=== PATIENT | female | born 1985 | race Caucasian/White ===

== ENCOUNTER 2016-03-03 11:37 | Inpatient (IN) | payer OTHER ==
[2016-03-03] MEDS ORDERED: TERBUTALINE SULFATE 1 MG/ML VIAL IV PRN (12:07)
[2016-03-03] MEDS ORDERED: EPSOM SALT 454 GM TP PRN (12:07)
[2016-03-03] MEDS ORDERED: OXYTOCIN/RINGERS LACTATE 1,000 ML IV PRN (12:07)
[2016-03-03] MEDS ORDERED: MINERAL OIL 60 ML OIL TP PRN (12:07)
[2016-03-03] MEDS ORDERED: LR 1,000 ML IV PRN (12:07)
[2016-03-03] MEDS ORDERED: LIDOCAINE 1% 30 ML SDV SC PRN (12:07)
--- NOTE | 2016-03-03 12:07 | GHP ---
[f rep st] HISTORY AND PHYSICAL DATE OF ADMISSION: 03/03/2016 ADMISSION DIAGNOSES: 1. Intrauterine at 37 weeks and 2 days. 2. Intrauterine growth restriction, estimated weight at the 3rd percentile. HISTORY OF PRESENT ILLNESS: Patient is a 31-year-old, 1, para 0, at 37 weeks and 2 days with an estimated due date of 03/22/2016 and this is by an 8- week ultrasound done in our office. Patient presents today for a routine visit and did have an ultrasound done for growth. This ultrasound showed baby girl in 3rd percentile, measuring 5 pounds 3 ounces. Dopplers are normal. ASHLEY is normal at 10 cm. Patient's cervix was examined and found to be 2 cm dilated, 50% effaced, -3 station. GBS is negative. The patient is being sent over to labor and delivery for induction of labor secondary to IUGR. She received good care at [facility] and presented early in the 1st trimester at 8 weeks. course has been pretty much uncomplicated except patient in the 3rd trimester started having some elevated blood pressures. Preeclampsia was ruled out. There was no proteinuria. PIH labs all normal. Patient is asymptomatic. Blood pressures at home have been 120- 130s over 70-80s. Patient did receive flu shot and Tdap in this , and GBS culture is negative. 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 Last menstrual period 06/09/2015. Menarche at age 11. Cycles are irregular, usually 30-32 days but can be anywhere from 45 days, and she usually bleeds anywhere from 3-7 days. She had a positive test on 07/15/2015. She has a history of an abnormal Pap smear 2009, and had a colposcopy 2010 which was normal, no treatment. Normal Pap smears since. Most recent Pap smear 04/2015 was negative. Chlamydia and gonorrhea cultures negative in this as well. She does have a history of HPV. PAST MEDICAL HISTORY: Remarkable for anxiety and depression. PAST SURGICAL HISTORY: Cardiac ablation in December 2014, right knee surgery in high school secondary to growth plate and urethral dilation in childhood. ALLERGIES: PCN - hives. MEDICATIONS: Prenatals and Claritin prn. FAMILY MEDICAL HISTORY: Father with chronic hypertension. Mother with thyroid dysfunction. LABS: A-positive, antibody negative, RPR nonreactive, rubella immune, hepatitis B surface antigen negative, HIV negative. The Trio screen was negative. TSH is normal 2.020. Verifi negative. AFP negative. 1-hour Glucola normal at 62. 3rd trimester H and H 13.3 and 38. GBS is negative. PHYSICAL EXAM: VITAL SIGNS: BPs on admission are elevated 150/90's. Patient afebrile. GENERAL APPEARANCE: Well nourished, well developed female, alert and oriented x3. No apparent distress. HEART: Regular rate, rhythm. LUNGS: Clear to auscultation bilaterally. ABDOMEN: Gravid, nondistended, nontender. EXTREMITIES: Normal to inspection. No calf tenderness or edema. PELVIC: Cervical exam reveals 3 cm dilated, 50% effaced, -2 station. is in cephalic presentation. heart tones are category I tracing. ASSESSMENT AND PLAN: A 31-year-old, 1, para 0, at 37-2/7 days with intrauterine growth restriction, estimated weight 3rd percentile for IOL. PLAN: 1. Admit to Labor and delivery for an induction of labor. 2. Will start Pitocin per protocol. 3. Will obtain PIH labs secondary to elevated BPs. 4. GBS negative, no prophylactic antibiotics needed. 5. Patient desires an epidural. /[id number]/MODL MTDD
[2016-03-03] MEDS ORDERED: LR 500 ML IV PRN (12:33)
[2016-03-03] MEDS ORDERED: OXYTOCIN/RINGERS LACTATE 500 ML IV SCH (13:00)
[2016-03-03 14:59] LABS: % IMMATURE GRANULYOCYTES 1.1 % (0.0-1.1); ABSOLUTE IMMATURE GRANULOCYTES 0.16 10^3/uL (0.00-0.10); ADD DIFF? NO; ADD MORPH? NO; ADD SCAN? NO; ATYPICAL LYMPHOCYTE FLAG 0 (0-99); FRAGMENT RBC FLAG 0 (0-99); HEMATOCRIT 40.1 % (38.0-47.0); LEFT SHIFT FLG 0 (0-99); LIPEMIA HEMOLYSIS FLAG 90 (0-99); MEAN CELL HEMOGLOBIN 31.7 pg (27.9-34.1); MEAN CELL HEMOGLOBIN CONCENTR. 34.9 g/dL (32.4-36.7); MEAN CELL VOLUME 90.9 fL (81.5-99.8); MEAN PLATELET VOLUME 10.6 fL (8.7-11.7); PLATELET CLUMPS FLAG 0 (0-99); PLATELET COUNT 215 10^3/uL (150-400); RED BLOOD CELL COUNT 4.41 10^6/uL (4.18-5.33); RED CELL DISTRIBUTION WIDTH 11.9 % (11.5-15.2)
[2016-03-03] MEDS ORDERED: LIDOCAINE 1% 30 ML SDV ONE (15:18)
[2016-03-03] MEDS ORDERED: MISOPROSTOL 200 MCG TAB ONE (15:19)
[2016-03-03 15:26] LABS: ALANINE AMINOTRANSFERASE 38 IU/L (9-52); ASPARTATE AMINOTRANSFERASE 30 IU/L (14-46); BILIRUBIN,TOTAL 0.3 mg/dL (0.1-1.4); BILIRUBIN-CONJUGATED 0.3 mg/dL (0.0-0.5); CREATININE 0.7 mg/dL (0.6-1.0); GLOMERULAR FILTRATION RATE > 60; LACTATE DEHYDROGENASE 656 IU/L (313-618); URIC ACID 5.3 mg/dL (2.5-6.8)
--- NOTE | 2016-03-03 17:43 | OBPROG ---
OBG Progress Note Assessment/Plan: Assessment: 31 y/o @ 37 3/7 wks for IOL secondary to IUGR Plan: Cont current management Pitocin at 8 mu/min, cont to increase per protocol FHTs-Cat I tracing PIH labs all wnl except slightly elevated LDH, most likely GHTN Will cont to monitor BPs Will perform cervical exam in 2 hours and hopefully AROM too 03/03/16 17:40 Subjective: Pt is eating a popsicle, rates pain with ctx's 2-10. Objective: 03/03/16 14:00 03/03/16 14:00 Patient ABO/Rh A POSITIVE 03/03/16 14:00 Uric Acid 5.3 mg/dL (2.5-6.8) 03/03/16 14:00 Total Bilirubin 0.3 mg/dL (0.1-1.4) 03/03/16 14:00 Conjugated Bilirubin 0.3 mg/dL (0.0-0.5) 03/03/16 14:00 Unconjugated Bilirubin 0.0 mg/dL (0.0-1.1) 03/03/16 14:00 AST 30 IU/L (14-46) 03/03/16 14:00 ALT 38 IU/L (9-52) 03/03/16 14:00 Lactate Dehydrogenase 656 IU/L (313-618) H 03/03/16 14:00 Current Contraction Pattern: Irregular FHR (bpm): 140 FHR Pattern Variability: Moderate FHR Category: 1 Membranes: Intact ICD10 Worksheet Patient Problems: Problems Problem Status Diagnosed Gestational HTN Acute IUGR (intrauterine growth restriction) Acute
--- NOTE | 2016-03-03 19:47 | OBPROG ---
OBG Progress Note Assessment/Plan: Assessment: 31 y/o @ 37 3/7 wks for IOL secondary to IUGR Plan: Cont current management Pitocin now at 14 mu/min FHTs-Cat I tracing, episodes of prolonged accels Will cont to monitor BPs AROM - clear fluid Epidural upon request 03/03/16 19:44 Subjective: Doing well, no complaints. Objective: 03/03/16 14:00 03/03/16 14:00 Patient ABO/Rh A POSITIVE 03/03/16 14:00 Uric Acid 5.3 mg/dL (2.5-6.8) 03/03/16 14:00 Total Bilirubin 0.3 mg/dL (0.1-1.4) 03/03/16 14:00 Conjugated Bilirubin 0.3 mg/dL (0.0-0.5) 03/03/16 14:00 Unconjugated Bilirubin 0.0 mg/dL (0.0-1.1) 03/03/16 14:00 AST 30 IU/L (14-46) 03/03/16 14:00 ALT 38 IU/L (9-52) 03/03/16 14:00 Lactate Dehydrogenase 656 IU/L (313-618) H 03/03/16 14:00 - SVE Dilation (cm): 3 Effacement (%): 50 Station: -1 Current Contraction Pattern: Irregular FHR (bpm): 140 FHR Pattern Variability: Moderate FHR Category: 1 Membranes: AROM Amniotic Fluid Color: Clear ICD10 Worksheet Patient Problems: Problems Problem Status Diagnosed Gestational HTN Acute IUGR (intrauterine growth restriction) Acute
[2016-03-03] MEDS ORDERED: BUPIVACAINE 0.25% 30 ML SDV MISC ONE (20:30)
[2016-03-03] MEDS ORDERED: PHENYLEPHRINE HCL 100 MCG/ML SYR IVP ONE (20:30)
[2016-03-03] MEDS ORDERED: fentaNYL 2MCG/ML/BUP 0.1% RTU 100 ML EP ONE (20:30)
--- NOTE | 2016-03-03 23:22 | OBPROG ---
OBG Progress Note Assessment/Plan: Assessment: 31 y/o @ 37 3/7 wks for IOL secondary to IUGR Plan: s/p epidural, pt comfortable Will have pt labor down x 30 min, then start pushing FHTs - Cat I tracing Anticipate 03/03/16 23:19 Subjective: Pt is comfortable, s/p epidural Objective: 03/03/16 14:00 03/03/16 14:00 Patient ABO/Rh A POSITIVE 03/03/16 14:00 Uric Acid 5.3 mg/dL (2.5-6.8) 03/03/16 14:00 Total Bilirubin 0.3 mg/dL (0.1-1.4) 03/03/16 14:00 Conjugated Bilirubin 0.3 mg/dL (0.0-0.5) 03/03/16 14:00 Unconjugated Bilirubin 0.0 mg/dL (0.0-1.1) 03/03/16 14:00 AST 30 IU/L (14-46) 03/03/16 14:00 ALT 38 IU/L (9-52) 03/03/16 14:00 Lactate Dehydrogenase 656 IU/L (313-618) H 03/03/16 14:00 - SVE Dilation (cm): 10 Effacement (%): 100 Station: +1 Current Contraction Pattern: Regular FHR (bpm): 130 FHR Pattern Variability: Moderate Membranes: AROM Amniotic Fluid Color: Clear ICD10 Worksheet Patient Problems: Problems Problem Status Diagnosed Gestational HTN Acute IUGR (intrauterine growth restriction) Acute
[2016-03-04] MEDS ORDERED: ONDANSETRON 4 MG/2 ML VIAL IVP ONE (00:05)
[2016-03-04] MEDS ORDERED: SIMETHICONE 80 MG TAB CHEW PO PRN (01:52)
[2016-03-04] MEDS ORDERED: HYDROCORTISONE 0.5% CREAM TP PRN (01:52)
[2016-03-04] MEDS ORDERED: HYDROCODONE/APAP 5/325 TAB PO PRN (01:52)
[2016-03-04] MEDS ORDERED: IBUPROFEN 600 MG TAB PO PRN (01:53)
--- NOTE | 2016-03-04 02:00 | OBPROC ---
- Labor and Delivery Onset of Contractions Date: 03/03/16 Onset of Contractions Time: 14:00 Onset of Contractions Type: Induced Rupture of Membranes Date: 03/03/16 Rupture of Membranes Time: 19:30 Rupture of Membranes Type: Artificial Amniotic Fluid Color: Clear Dilation Complete Time: 23:30 Delivery Type: Vacuum (R/B/A reviewed with pt and spouse at bedside. Agreed to proceed with vaccuum. Vacuum applied at +3 station, OA secondary to Cat II strip -FHTs in 90's. Applied x 30 sec during 1 ctx with appropriate pressures, no pop- offs. Head then delivered and vacuum removed. No complications.) Placenta Delivery Date: 03/04/16 Placenta Delivery Time: 01:35 Episiotomy/Laceration: Midline Repair: 3-0, Vicryl EBL: 300cc Complications: Nuchal Cord (loose x 2, slipped over perineum) - Medications Labor Augmentation/Induction Meds Used: Pitocin Labor Augmentation/Induction Indication: IUGR Anesthesia: Epidural - Info A Delivery Date: 03/04/16 Delivery Time: 01:30 Sex of : Female (Chaz) [place] Weight (gm): 2097.865 g Score (1 Min): 8 Score (5 Min): 9
[2016-03-04 02:31] LABS: PH VENOUS CORD BLOOD 7.31 (7.20-7.42)
[2016-03-04] MEDS: IBUPROFEN 600 MG TAB PO PRN ×4 (02:59→22:12)
[2016-03-04] MEDS: ESCITALOPRAM OXALATE 10 MG TAB PO SCH (10:03)
[2016-03-04] MEDS: DOCUSATE SODIUM 100 MG CAP PO PRN (10:03)
--- NOTE | 2016-03-04 10:32 | POSTANESTH ---
Post Anesthetic Evaluation Cardiovascular Status: Normal, Stable Respiratory Status: Normal, Stable Level of Consciousness/Mental Status: Can Participate in Eval, Alert and Oriented Pain Control: Adequate, Prn Tx Ordered Nausea/Vomiting Control: Adequate, Prn Tx Ordered Complications Possibly Related to Anesthesia: None Noted (Epidrual End Time 01: 35 pt states epidural worked well and was appreciative. No motor/sensory deficits, no headache, no complaints.)
--- NOTE | 2016-03-04 19:52 | SOAPPROG ---
SOAP Progress Note Assessment/Plan: Assessment: PPD 1 s/p IUGR - indxn at 37 wks gestational hypertension depr on Lexapro Plan: Routine care, watch B/P carefully - no need for meds yet 03/04/16 19:48 Subjective: Pt feeling well but anxious about B/P. Has had tingling in fingers. Mild ESQUIVEL this am but gone after eating. Urinating fine. Baby has BF well and also pt pumping and getting colostrum. Sore bottom, managed with ibu. Reassured pt about B/P and potential of starting meds but if needed it is usu only for about 6 wks Objective: Vital Signs Temp Pulse Resp BP Pulse Ox 36.6 C 83 16 157/92 H 94 03/04/16 12:21 03/04/16 16:00 03/04/16 12:21 03/04/16 16:00 03/04/16 12:21 Laboratory Results 03/03/16 14:00 03/03/16 14:00 03/03/16 03/04/16 03/05/16 05:59 05:59 05:59 Output Total 350 Balance -350 Physical Exam - Physical Exam General Appearance: WD/WN Abdomen: non-tender, soft, other (FF at umb -1) Pelvic Exam: vaginal bleeding (normal lochia) Extremities: non-tender, pedal edema (mild) Neuro/Psych: normal mood/affect (with usual anxiety) ICD10 Worksheet Patient Problems: Problems Problem Status Diagnosed Gestational HTN Acute IUGR (intrauterine growth restriction) Acute
[2016-03-05] MEDS: IBUPROFEN 600 MG TAB PO PRN ×4 (05:06→22:49)
[2016-03-05 05:51] VITALS: RESP 16
[2016-03-05] MEDS: ESCITALOPRAM OXALATE 10 MG TAB PO SCH (09:06)
--- NOTE | 2016-03-05 09:18 | OBPROG ---
OBG Progress Note Assessment/Plan: Assessment: 31 y/o PPD # 1.5 s/p doing well. Plan: support, bowel protocol. Observe BP closely. 03/05/16 09:18 Subjective: Pt is doing well today. She is calmer and has good BP control. Denies PIH symptoms. She has min perineal pain controlled with Ibuprofen. Breast feeding is going well and baby is latching. She is also pumping and supplementing baby with donor milk. Objective: 03/03/16 14:00 03/03/16 14:00 Patient ABO/Rh A POSITIVE 03/03/16 14:00 Uric Acid 5.3 mg/dL (2.5-6.8) 03/03/16 14:00 Total Bilirubin 0.3 mg/dL (0.1-1.4) 03/03/16 14:00 Conjugated Bilirubin 0.3 mg/dL (0.0-0.5) 03/03/16 14:00 Unconjugated Bilirubin 0.0 mg/dL (0.0-1.1) 03/03/16 14:00 AST 30 IU/L (14-46) 03/03/16 14:00 ALT 38 IU/L (9-52) 03/03/16 14:00 Lactate Dehydrogenase 656 IU/L (313-618) H 03/03/16 14:00 Temp Pulse Resp BP Pulse Ox 36.4 C 77 16 147/91 H 94 03/05/16 07:50 03/05/16 07:50 03/05/16 07:50 03/05/16 07:50 03/05/16 07:50 Uterine Position/Fundal Height: Umbilicus -2 Uterine Tone: Firm - Physical Exam General Appearance: WD/WN, alert, no apparent distress Neck: non-tender, full range of motion, supple Respiratory: chest non-tender, lungs clear, normal breath sounds Cardiac/Chest: regular rate, rhythm Abdomen: normal bowel sounds Extremities: swelling (no), Gen's sign (neg) ICD10 Worksheet Patient Problems: Problems Problem Status Diagnosed Gestational HTN Acute IUGR (intrauterine growth restriction) Acute
[2016-03-05] MEDS: DOCUSATE SODIUM 100 MG CAP PO PRN (11:06)
[2016-03-05 20:36] VITALS: O2SAT 100
[2016-03-06] MEDS: IBUPROFEN 600 MG TAB PO PRN ×2 (08:11→14:20)
[2016-03-06] MEDS: ESCITALOPRAM OXALATE 10 MG TAB PO SCH (08:11)
[2016-03-06] MEDS: DOCUSATE SODIUM 100 MG CAP PO PRN (08:12)
--- NOTE | 2016-03-06 12:37 | OBPROG ---
OBG Progress Note Assessment/Plan: Assessment: 31 y/o PPD # 2 s/p doing well. Plan: D/c to [facility] today. Rx Ibuprofen, pt declines [place]. Pt reports feeling stable on Lexapro and will continue. Follow-up @ [facility] next week for BP check and gave precautions to call for fever, heavy vaginal bleeding, PIH symptoms or other concerns. 03/05/16 09:18 03/06/16 12:34 Subjective: Pt is doing well today. She has min cramping and perineal pain controlled with Ibuprofen. No n/v, yajaira reg diet + BM. Breast feeding is progressing and she is getting more volume when she pumps. Baby is doing well with latch and supplement but now has elevated bili and reservations clerk plans to keep baby under lights until tomorrow. Pt desires to d/c to [facility] status. Objective: 03/03/16 14:00 03/03/16 14:00 Patient ABO/Rh A POSITIVE 03/03/16 14:00 Uric Acid 5.3 mg/dL (2.5-6.8) 03/03/16 14:00 Total Bilirubin 0.3 mg/dL (0.1-1.4) 03/03/16 14:00 Conjugated Bilirubin 0.3 mg/dL (0.0-0.5) 03/03/16 14:00 Unconjugated Bilirubin 0.0 mg/dL (0.0-1.1) 03/03/16 14:00 AST 30 IU/L (14-46) 03/03/16 14:00 ALT 38 IU/L (9-52) 03/03/16 14:00 Lactate Dehydrogenase 656 IU/L (313-618) H 03/03/16 14:00 Temp Pulse Resp BP Pulse Ox 36.6 C 84 16 145/92 H 100 03/05/16 20:00 03/05/16 20:00 03/05/16 20:00 03/05/16 20:00 03/05/16 20:00 Uterine Position/Fundal Height: Umbilicus -2 Uterine Tone: Firm - Physical Exam General Appearance: WD/WN, alert, no apparent distress Neck: non-tender, full range of motion, supple Respiratory: chest non-tender, lungs clear, normal breath sounds Cardiac/Chest: regular rate, rhythm Abdomen: normal bowel sounds Extremities: swelling (tr), Gen's sign (neg) ICD10 Worksheet Patient Problems: Problems Problem Status Diagnosed Gestational HTN Acute IUGR (intrauterine growth restriction) Acute Spontaneous vaginal delivery Acute
[2016-03-06 13:21] VITALS: BP 149/83; PULSE 77; TEMP 97.4
== END 2016-03-06 17:01 | disposition home or self-care (01) | DRG 775 ==
LOC: FLD 11:37 → FOB 03-04 03:56
PROVIDERS: ADMIT Obstetrics & Gynecology; ATTEND Obstetrics & Gynecology
PROC: 10907ZC Drainage of Amniotic Fluid, Therapeutic from Products of Conception, Via Natural or Artificial Opening (ICD-10-PCS; principal; 2016-03-03)
PROC: 10D07Z6 Extraction of Products of Conception, Vacuum, Via Natural or Artificial Opening (ICD-10-PCS; principal; 2016-03-03)
PROC: 3E033VJ Introduction of Other Hormone into Peripheral Vein, Percutaneous Approach (ICD-10-PCS; principal; 2016-03-03)
DX: O36.5931 Maternal care for other known or suspected poor fetal growth, third trimester, fetus 1 (principal); O13.3 Gestational [pregnancy-induced] hypertension without significant proteinuria, third trimester; O69.81X1 Labor and delivery complicated by cord around neck, without compression, fetus 1; O76 Abnormality in fetal heart rate and rhythm complicating labor and delivery; Z3A.37 37 weeks gestation of pregnancy; Z37.0 Single live birth
CPT/HCPCS: J2370; J2405; J2590

== ENCOUNTER → 2016-03-17 | Outpatient (CLI) | payer OTHER | LOC: FLACT 14:20 | PROVIDERS: ATTEND Obstetrics & Gynecology | DX: Z39.0 Encounter for care and examination of mother immediately after delivery (principal); O92.5 Suppressed lactation | CPT/HCPCS: G0463 ==

== ENCOUNTER 2016-12-25 08:28 | Emergency (ER) | payer OTHER ==
[2016-12-25 08:45] LABS: COLOR YELLOW; LEUKOCYTE ESTERASE,URINE 2+ (NEGATIVE); NITRITE,URINE NEGATIVE (NEGATIVE)
--- NOTE | 2016-12-25 09:39 | EDPHY ---
H & P Time Seen by Provider: 12/25/16 09:18 HPI/ROS: CHIEF COMPLAINT: Abdominal pain HISTORY OF PRESENT ILLNESS: 31-year-old female presents to the emergency department with right lower quadrant abdominal pain that woke up out of her sleep in the middle of the night. Patient states that he has never had pain like this in the past. She states that the pain will come in waves with intense sharp pain about every few minutes. No nausea or vomiting. No diarrhea. She had a small bowel movement earlier this morning. No back pain. No urinary symptoms. No chest pain or difficulty breathing. Last menstrual period was November 19, over 1 month ago. She is x9 months. She states that her periods have been irregular since that time. She is not currently nursing. REVIEW OF SYSTEMS: Constitutional: No fever, no chills. Eyes: No double or blurry vision. ENT: No sore throat. Respiratory: No cough, no shortness of breath. Cardiac: No chest pain. Gastrointestinal: Abdominal pain as above. No vomiting or diarrhea. Genitourinary: No dysuria. Musculoskeletal: No neck or back pain. Skin: No rashes. Neurological: No headache. Past Medical/Surgical History: x9 months, ovarian cyst Social History: and lives in [place] Smoking Status: Never smoked Physical Exam: General Appearance: Alert, no distress. Eyes: Pupils equal and round. Extraocular motions are all intact. ENT: Mouth: Mucous membranes moist. Respiratory: No wheezing, rhonchi, or rales, lungs are clear to auscultation. Cardiovascular: Regular rate and rhythm. Gastrointestinal: Abdomen is soft. She has tenderness with palpation in the right lower quadrant. There is no rebound, guarding or masses noted. No CVA tenderness bilaterally. Neurological: Alert and oriented x 3, cranial nerves II through XII grossly intact Skin: Warm and dry, no rashes. Musculoskeletal: Nontender to palpate along the cervical, thoracic or lumbar spine. Neck is supple. Extremities: Full range of motion and no peripheral edema. Psychiatric: Patient is oriented X 3, there is no agitation. Constitutional: Initial Vital Signs Temperature (C) 36.5 C 12/25/16 08:29 Heart Rate 82 12/25/16 08:29 Respiratory Rate 16 12/25/16 08:29 Blood Pressure 158/92 H 12/25/16 08:29 O2 Sat (%) 100 11/11/17 08:29 O2 Delivery Mode Room Air Allergies/Adverse Reactions: amoxicillin Allergy (Verified 03/03/16 14:47) Hives Home Medications: Medication Instructions Recorded Folic Acid 2 tab PO DAILY 03/03/16 Lexapro 10 MG 10 mg PO DAILY 03/03/16 Multivitamins [Multivitamin (*)] 1 tab PO DAILY 03/03/16 Escitalopram Oxalate [Lexapro 10 10 mg PO DAILY #0 tab 03/06/16 MG] Ibuprofen [Motrin (*)] 600 mg PO Q6HRS PRN #30 tab 03/06/16 Medical Decision Making - Diagnostics Imaging Results: Imaging Impressions Abdomen CT 12/25/16 09:58 Impression: 1. Normal CT appearance of the appendix. 2. Hemangioma posterior segment of the right hepatic lobe. 3. Right renal cyst. Results called to Mulu Schwartz PA-C at 11:00 a.m. ED Course/Re-evaluation: 31-year-old female presents to the emergency department with abdominal pain. Laboratories tests are pending. The patient has had ovarian cysts in the past and she states "this feels much different and the pain is much higher ". Urinalysis reveals no signs of infection. Urine HCG was negative. The patient continues to have ongoing abdominal pain. She states that this does not feel like an ovarian cyst. I discussed the pros and cons of CT imaging of her abdomen and pelvis including radiation exposure and the patient agrees with CT scan. CT scan was normal. Laboratory studies were all unremarkable. The patient was given 30 mg of IV Toradol as well as IV normal saline. She was feeling slightly better. I do not think this patient requires surgical consultation. She had an appendix that was well visualized and was normal. All of her laboratory studies were unremarkable and she will be discharged home. Differential Diagnosis: Including but not limited to acute appendicitis, ovarian cyst, ovarian torsion, urinary tract infection, pyelonephritis, kidney stone, colitis, constipation - Data Points Laboratory Results: Laboratory Results 12/25/16 09:29 12/25/16 09:29 12/25/16 12/25/16 12/25/16 11:29 09:29 09:29 WBC 4.94 10^3/uL 10^3/uL (3.80-9.50) RBC 4.98 10^6/uL 10^6/uL (4.18-5.33) Hgb 15.5 g/dL g/dL (12.6-16.3) Hct 44.6 % % (38.0-47.0) MCV 89.6 fL fL (81.5-99.8) MCH 31.1 pg pg (27.9-34.1) MCHC 34.8 g/dL g/dL (32.4-36.7) RDW 11.9 % % (11.5-15.2) Plt Count 217 10^3/uL 10^3/uL (150-400) MPV 9.6 fL fL (8.7-11.7) Neut % (Auto) 58.3 % % (39.3-74.2) Lymph % (Auto) 33.8 % % (15.0-45.0) Pope % (Auto) 6.3 % % (4.5-13.0) Eos % (Auto) 0.6 % % (0.6-7.6) Baso % (Auto) 0.6 % % (0.3-1.7) Nucleat RBC Rel Count 0.0 % % (0.0-0.2) Absolute Neuts (auto) 2.88 10^3/uL 10^3/uL (1.70-6.50) Absolute Lymphs (auto) 1.67 10^3/uL 10^3/uL (1.00-3.00) Absolute Monos (auto) 0.31 10^3/uL 10^3/uL (0.30-0.80) Absolute Eos (auto) 0.03 10^3/uL 10^3/uL (0.03-0.40) Absolute Basos (auto) 0.03 10^3/uL 10^3/uL (0.02-0.10) Absolute Nucleated RBC 0.00 10^3/uL 10^3/uL (0-0.01) Immature Gran % 0.4 % % (0.0-1.1) Immature Gran # 0.02 10^3/uL 10^3/uL (0.00-0.10) Sodium 142 mEq/L mEq/L (134-144) Potassium 4.1 mEq/L mEq/L (3.5-5.2) Chloride 104 mEq/L mEq/L (97-110) Carbon Dioxide 26 mEq/l mEq/l (22-31) Anion Gap 12 mEq/L mEq/L (8-16) BUN 18 mg/dL mg/dL (7-23) Creatinine 0.8 mg/dL mg/dL (0.6-1.0) Estimated GFR > 60 Glucose 86 mg/dL mg/dL (70-100) Calcium 9.3 mg/dL mg/dL (8.5-10.4) Total Bilirubin 0.4 mg/dL mg/dL (0.1-1.4) Conjugated Bilirubin 0.0 mg/dL mg/dL (0.0-0.5) Unconjugated Bilirubin 0.4 mg/dL mg/dL (0.0-1.1) AST 23 IU/L IU/L (14-46) ALT 31 IU/L IU/L (9-52) Alkaline Phosphatase 45 IU/L IU/L (38-126) Total Protein 6.8 g/dL g/dL (6.3-8.2) Albumin 4.1 g/dL g/dL (3.5-5.0) Lipase 115 IU/L IU/L (23-300) Urine Color Urine Appearance Urine pH Ur Specific Franklin Urine Protein Urine Ketones Urine Blood Urine Nitrate Urine Bilirubin Urine Urobilinogen Ur Leukocyte Esterase Urine RBC Urine WBC Ur Epithelial Cells Urine Glucose Urine Test 12/25/16 12/25/16 08:37 08:37 WBC RBC Hgb Hct MCV MCH MCHC RDW Plt Count MPV Neut % (Auto) Lymph % (Auto) Pope % (Auto) Eos % (Auto) Baso % (Auto) Nucleat RBC Rel Count Absolute Neuts (auto) Absolute Lymphs (auto) Absolute Monos (auto) Absolute Eos (auto) Absolute Basos (auto) Absolute Nucleated RBC Immature Gran % Immature Gran # Sodium Potassium Chloride Carbon Dioxide Anion Gap BUN Creatinine Estimated GFR Glucose Calcium Total Bilirubin Conjugated Bilirubin Unconjugated Bilirubin AST ALT Alkaline Phosphatase Total Protein Albumin Lipase Urine Color YELLOW Urine Appearance HAZY Urine pH 6.0 (5.0-7.5) Ur Specific Franklin 1.021 (1.002-1.030) Urine Protein NEGATIVE (NEGATIVE) Urine Ketones NEGATIVE (NEGATIVE) Urine Blood NEGATIVE (NEGATIVE) Urine Nitrate NEGATIVE (NEGATIVE) Urine Bilirubin NEGATIVE (NEGATIVE) Urine Urobilinogen NEGATIVE EU EU (0.2-1.0) Ur Leukocyte Esterase 2+ H (NEGATIVE) Urine RBC 1-3 /hpf /hpf (0-3) Urine WBC 1-3 /hpf /hpf (0-3) Ur Epithelial Cells TRACE /lpf /lpf (NONE-1+) Urine Glucose NEGATIVE (NEGATIVE) Urine Test NEGATIVE Medications Given: Discontinued Medications Sodium Chloride (Ns) 1,000 mls @ 0 mls/hr IV ONCE ONE PRN Reason: Wide Open Stop: 12/25/16 11:27 Last Admin: 12/25/16 11:40 Dose: 1,000 mls Ketorolac Tromethamine (Toradol) 30 mg IVP EDNOW ONE Stop: 12/25/16 11: Last Admin: 12/25/16 11:41 Dose: 30 mg Departure - Departure Disposition: Home, Routine, Self-Care Clinical Impression: Abdominal pain Qualifiers: Abdominal location: right lower quadrant Qualified Code(s): R10.31 - Right lower quadrant pain Condition: Good Instructions: Acute Abdominal Pain (ED) Additional Instructions: Abdominal Pain: Return to the Emergency Department immediately for increasing pain, fever, vomiting, or if not completely better in 8-12 hours. Diet and activity as tolerated. Referrals: Lamar Ferrer MD [Primary Care Provider] - 2-3 days, if not improved
[2016-12-25 09:41] LABS: % IMMATURE GRANULYOCYTES 0.4 % (0.0-1.1); ABSOLUTE IMMATURE GRANULOCYTES 0.02 10^3/uL (0.00-0.10); ADD DIFF? NO; ADD MORPH? NO; ADD SCAN? NO; ATYPICAL LYMPHOCYTE FLAG 20 (0-99); FRAGMENT RBC FLAG 0 (0-99); HEMATOCRIT 44.6 % (38.0-47.0); HEMOGLOBIN 15.5 g/dL (12.6-16.3); LEFT SHIFT FLG 0 (0-99); LIPEMIA HEMOLYSIS FLAG 90 (0-99); MEAN CELL HEMOGLOBIN 31.1 pg (27.9-34.1); MEAN CELL HEMOGLOBIN CONCENTR. 34.8 g/dL (32.4-36.7); MEAN CELL VOLUME 89.6 fL (81.5-99.8); MEAN PLATELET VOLUME 9.6 fL (8.7-11.7); PLATELET CLUMPS FLAG 0 (0-99); PLATELET COUNT 217 10^3/uL (150-400); RED BLOOD CELL COUNT 4.98 10^6/uL (4.18-5.33); RED CELL DISTRIBUTION WIDTH 11.9 % (11.5-15.2)
[2016-12-25 09:54] LABS: ANION GAP 12 mEq/L (8-16); CALCIUM 9.3 mg/dL (8.5-10.4); CARBON DIOXIDE 26 mEq/l (22-31); CHLORIDE 104 mEq/L (97-110); CREATININE 0.8 mg/dL (0.6-1.0); GLOMERULAR FILTRATION RATE > 60; GLUCOSE 86 mg/dL (70-100); POTASSIUM 4.1 mEq/L (3.5-5.2); SODIUM 142 mEq/L (134-144)
[2016-12-25] MEDS ORDERED: IOPAMIDOL (ISOVUE-300) 100 ML BTL ONE (10:10)
[2016-12-25] MEDS: NS 1,000 ML IV ONE (11:40)
[2016-12-25] MEDS: KETOROLAC 30 MG/1 ML SDV IVP ONE (11:41)
[2016-12-25 12:19] VITALS: RESP 18; TEMP 98.1
[2016-12-25 12:45] LABS: ALBUMIN 4.1 g/dL (3.5-5.0); BILIRUBIN,TOTAL 0.4 mg/dL (0.1-1.4); BILIRUBIN-UNCONJUGATED 0.4 mg/dL (0.0-1.1); TOTAL PROTEIN 6.8 g/dL (6.3-8.2)
[2016-12-25 13:22] VITALS: BP 136/80; PULSE 80; O2SAT 100
== END 2016-12-25 13:22 | disposition home or self-care (01) ==
DX: R10.31 Right lower quadrant pain (principal)
CPT/HCPCS: 96374; J1885; Q9967

== ENCOUNTER 2017-05-15 14:35 | Emergency (ER) | payer OTHER ==
[2017-05-15 14:38] VITALS: TEMP 98.2
--- NOTE | 2017-05-15 14:47 | CPEKG ---
Heart Rate: 96 RR Interval: 625 QRSD Interval: 86 QT Interval: 360 QTC Interval: 455 QRS Camas: 49 T Wave Camas: 25 EKG Severity - ABNORMAL ECG - EKG Impression: ATRIAL FIBRILLATION, V-RATE 64-130 Electronically Signed By: Stan Sears 15-May-2017 16:12:39
--- NOTE | 2017-05-15 15:04 | EDPHY ---
H & P Time Seen by Provider: 05/15/17 14:51 HPI/ROS: CHIEF COMPLAINT: Irregular heartbeat HISTORY OF PRESENT ILLNESS: 32-year-old female with a history of atrial fibrillation and SVT presents with an irregular heartbeat. Onset of irregular heartbeat 2 hr ago, associated with anxiety. History of cardiac ablation for SVT in 2014. Occasional palpitations since then, but no prolonged episodes. No shortness of breath, dizziness or chest discomfort. Similar to prior episodes of atrial fibrillation. No thyroid disease. 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 Smoking Status: Never smoked Physical Exam: General Appearance: Alert, pleasant Eyes: Pupils equal and round, no conjunctival pallor or injection ENT, Mouth: Mucous membranes moist Neck: Normal inspection Respiratory: Lungs are clear to auscultation Cardiovascular: Irregularly regular rate and rhythm Gastrointestinal: Abdomen is soft and nontender Neurological: A&O, nonfocal, normal gait Skin: Warm and dry, no rash Extremities: Nontender, no pedal edema Psychiatric: Anxious Constitutional: Initial Vital Signs Temperature (C) 36.8 C 05/15/17 14:37 Heart Rate 92 05/15/17 14:37 Respiratory Rate 20 05/15/17 14:37 Blood Pressure 145/106 H 05/15/17 14:37 O2 Sat (%) 99 05/15/17 14:37 O2 Delivery Mode Room Air Allergies/Adverse Reactions: amoxicillin Allergy (Verified 05/15/17 14:36) Hives Home Medications: Medication Instructions Recorded Folic Acid 2 tab PO DAILY 03/03/16 Lexapro 10 MG 10 mg PO DAILY 03/03/16 Multivitamins [Multivitamin (*)] 1 tab PO DAILY 03/03/16 Escitalopram Oxalate [Lexapro 10 10 mg PO DAILY #0 tab 03/06/16 MG] Ibuprofen [Motrin (*)] 600 mg PO Q6HRS PRN #30 tab 03/06/16 Apixaban [Eliquis] 5 mg PO BID #30 tab 05/15/17 Medical Decision Making - Diagnostics EKG Interpretation: EKG interpreted by me reveals atrial fibrillation, ventricular rate 96, no ST or T segment changes. ED Course/Re-evaluation: This patient presents with recurrent atrial fibrillation, with a controlled rate. [facility] consulted. Consulted Dr. Mcginnis, would like patient to be on Eliquis 5 mg twice a day and will follow up with the patient in the office this week. Risks and benefits of anticoagulation discussed with the patient and her father. She accepts the risk and clearly understands the risks and benefits. Eliquis 5 mg orally given. Ativan 0.5 mg orally also given for anxiety. Differential Diagnosis: includes though not limited to Afib with RVR, ventricular dysrhythmia,SVT - Data Points Medications Given: Discontinued Medications Apixaban (Eliquis) 5 mg PO EDNOW ONE Stop: 05/15/17 15:27 Last Admin: 05/15/17 15:41 Dose: 5 mg Lorazepam (Ativan) 0.5 mg PO EDNOW ONE Stop: 05/15/17 15:27 Last Admin: 05/15/17 15:34 Dose: 0.5 mg Departure - Departure Disposition: Home, Routine, Self-Care Clinical Impression: Atrial fibrillation Qualifiers: Atrial fibrillation type: paroxysmal Qualified Code(s): I48.0 - Paroxysmal atrial fibrillation Condition: Good Instructions: A-fib (Atrial Fibrillation) (ED) Referrals: Lamar Ferrer MD [Primary Care Provider] - As per Instructions Chetan Turner MD [Medical Doctor] - As per Instructions (Call tomorrow morning to make an appointment with Dr. Turner or with Dr. Mcginnis.) Prescriptions: Apixaban [Eliquis] 5 mg PO BID #30 tab
[2017-05-15 15:20] VITALS: O2SAT 96
[2017-05-15] MEDS ORDERED: LORazepam 1 MG TAB PO ONE (15:26)
[2017-05-15] MEDS ORDERED: APIXABAN 5 MG TAB PO ONE (15:26)
[2017-05-15 15:33] VITALS: BP 130/92; PULSE 109; RESP 15
== END 2017-05-15 15:55 | disposition home or self-care (01) ==
DX: I48.0 Paroxysmal atrial fibrillation (principal)